=== PATIENT | female | born 1950 | race African-American/Black ===

== ENCOUNTER → 2016-12-12 | Outpatient (CLI) | payer MEDICARE, OTHER ==
[~2016-12-12] MED LIST: LORA-627 PO; [UNRECOGNIZED DRUG - OTHER]; lisinopril; potassium; warfarin
--- NOTE | 2016-12-12 11:49 | RAD ---
DATE: 12/12/2016 EXAM: DIGITAL SCREEN BILAT W/CAD HISTORY: Routine screening COMPARISON: 11/28/2015 This study was interpreted with the benefit of Computerized Aided Detection (CAD). FINDINGS: There are scattered fibroglandular densities in the breasts. No new or enlarging breast densities are seen. 2 breast biopsy markers are again noted in the left breast. Benign type calcifications are present. No suspicious microcalcifications have developed. IMPRESSION: Stable mammograms without evidence of malignancy. BI-RADS CATEGORY: 2 BENIGN FINDING(S) RECOMMENDED FOLLOW-UP: 12M 12 MONTH FOLLOW-UP PQRS compliance statement: Patient information was entered into a reminder system with a target due date for the next mammogram. Mammography is a sensitive method for finding small breast cancers, but it does not detect them all and is not a substitute for careful clinical examination. A negative mammogram does not negate a clinically suspicious finding and should not result in delay in biopsying a clinically suspicious abnormality. "Our facility is accredited by the [employer] Mammography [employer]."
== END | disposition home or self-care (01) ==
LOC: MAMMO 11:00
PROVIDERS: ATTEND Family Medicine
DX: Z12.31 Encounter for screening mammogram for malignant neoplasm of breast (principal)
CPT/HCPCS: G0202; 77067

== ENCOUNTER → 2017-12-15 | Outpatient (CLI) | payer MEDICARE, OTHER | END | disposition home or self-care (01) | LOC: MAMMO 11:01 | DX: Z12.31 Encounter for screening mammogram for malignant neoplasm of breast (principal) | CPT/HCPCS: 77063; 77067 ==

== ENCOUNTER → 2018-12-16 | Outpatient (CLI) | payer MEDICARE, OTHER ==
--- NOTE | 2018-12-16 13:16 | RAD ---
DATE: 12/16/2018 EXAM: DIGITAL SCREEN BILAT W/CAD HISTORY: Routine screening COMPARISON: 12/15/2017 This study was interpreted with the benefit of Computerized Aided Detection (CAD). Breast Density: SCATTERED The breast parenchyma shows scattered fibroglandular densities. Breast parenchyma level B. FINDINGS: Two old breast biopsy markers are again noted in the left breast. No new or enlarging breast densities are seen. Scattered benign type calcifications are noted. No suspicious microcalcifications have developed. IMPRESSION: Stable mammograms without evidence of malignancy. BI-RADS CATEGORY: 2 BENIGN FINDING(S) RECOMMENDED FOLLOW-UP: 12M 12 MONTH FOLLOW-UP PQRS compliance statement: Patient information was entered into a reminder system with a target due date for the next mammogram. Mammography is a sensitive method for finding small breast cancers, but it does not detect them all and is not a substitute for careful clinical examination. A negative mammogram does not negate a clinically suspicious finding and should not result in delay in biopsying a clinically suspicious abnormality. "Our facility is accredited by the [employer] Mammography [employer]."
== END | disposition home or self-care (01) ==
LOC: MAMMO 12:18
PROVIDERS: ATTEND Family Medicine
DX: Z12.31 Encounter for screening mammogram for malignant neoplasm of breast (principal); R92.8 Other abnormal and inconclusive findings on diagnostic imaging of breast
CPT/HCPCS: 77067

== ENCOUNTER → 2020-05-02 | Outpatient (CLI) | payer MEDICARE, BC ==
--- NOTE | 2020-05-02 17:10 | KCIC ---
CERVICAL SPINE 5V History: Cervical pain greater on the left side for about one month Comparison: None. Findings: 6 views of the cervical spine are submitted. There is mild degenerative disc disease at C6-7. There are large anterior osteophytes C3-4 to C6-7. There is multilevel cervical facet degenerative change. There is neural foramina compromise likely greatest on the left at C6-7 and on the right at C5-6 and C6-7. There is adequate alignment of lateral masses of C1 relative to C2. Impression: 1. There is multilevel facet degenerative change which contributes to multilevel neural foramina compromise. There is mild C6-7 degenerative disc disease. There are large anterolateral osteophytes greatest at C5-6 and C6-7. Electronically signed by: Tarun Rocha MD (05/02/2020 5:07 PM) [id number]
== END | disposition home or self-care (01) ==
LOC: KCIC 11:12
PROVIDERS: ATTEND Family Medicine
DX: M47.812 Spondylosis without myelopathy or radiculopathy, cervical region (principal); M50.323 Other cervical disc degeneration at C6-C7 level; M25.78 Osteophyte, vertebrae
CPT/HCPCS: 72050

== ENCOUNTER → 2020-06-29 | Outpatient (CLI) | payer MEDICARE, BC ==
[~2020-06-29] MED LIST changes: +CONTRAST GIVEN. MC PRN; +IOHEXOL 300 MG/ML 100ML VIAL. IV ONE
--- NOTE | 2020-06-29 15:48 | KCIC ---
RS Compliance Statement: One or more of the following individualized dose reduction techniques were utilized for this examination: 1. Automated exposure control 2. Adjustment of the mA and/or kV according to patient size 3. Use of iterative reconstruction technique Neck CT with contrast: 06/29/2020 Indication: Anterior left-sided neck pain. Technique: Multiple axial images were obtained through the neck following intravenous injection of contrast material. Comparison: None. Findings: The visualized brain parenchyma appears intact. The skull base is normal. The visualized paranasal sinuses and orbital contents are normal. The sella turcica and cavernous sinus regions appear intact. The mastoid air cells are normal. The fossa of Rosenmuller is normal. The parotid space contents and poultry cutter space contents appear intact. The parapharyngeal spaces are normal. Minimal dilatation of the intraglandular submandibular ducts. No calculi are identified. The epiglottis, aryepiglottic folds, and piriform sinuses are normal. The vallecula appears normal. The larynx and trachea are normal. The thyroid lobes appear intact. The carotid space contents are normal. There is no deep cervical chain adenopathy observed. The jugulodigastric regions appear intact. Submental lymph node measures 6 mm. The perivertebral space contents are normal. The supraclavicular regions appear intact. The visualized mediastinum is normal. The visualized lungs appear intact. Mild cervical spondylosis centered at C6-C7.. 5 mm solid noncalcified pulmonary nodule identified in the left upper lobe (series 2, image 75). Impression: 1. Minimal symmetric dilatation of the intraglandular submandibular ducts bilaterally. No definite calcifications within the floor of mouth to suggest sialolithiasis. 2. 5 mm solid noncalcified pulmonary nodule in the left upper lobe. Fleischner guidelines for incidentally detected pulmonary nodules suggests no routine follow-up for low risk patients and optional CT at 12 months for high risk patients with solid noncalcified pulmonary nodules less than 6 mm in size. 3. No suspicious pharyngeal or laryngeal mass. No pathologically enlarged cervical lymph nodes. Electronically signed by: Tisha Guardado MD (06/29/2020 3:46 PM) [facility]
== END ==
LOC: KCIC CT 12:35
PROVIDERS: ATTEND Family Medicine
DX: R59.0 Localized enlarged lymph nodes (principal); M47.812 Spondylosis without myelopathy or radiculopathy, cervical region; R91.1 Solitary pulmonary nodule
CPT/HCPCS: 70491; 82565; Q9967

== ENCOUNTER → 2020-11-21 | Outpatient (CLI) | payer MEDICARE, BC ==
[~2020-11-21] MED LIST changes: -CONTRAST GIVEN. MC PRN; -IOHEXOL 300 MG/ML 100ML VIAL. IV ONE
--- NOTE | 2020-11-23 08:59 | RAD ---
DATE: 11/21/2020 2:55 PM EXAM: MAMMO STEVIE SCREENING BILATERAL HISTORY: Screening COMPARISON: 12/16/2018 Bilateral CC and MLO views of the breasts were performed. Bilateral breast tomosynthesis was performed in CC and MLO projections. This study was interpreted with the benefit of Computerized Aided Detection (CAD). FINDINGS: Breast Density: SCATTERED The breast parenchyma shows scattered fibroglandular densities. Breast parenchyma level B No suspicious masses, microcalcifications or architectural distortion is present to suggest malignancy in either breast. The visualized axillae are unremarkable. IMPRESSION: No mammographic evidence of malignancy. BI-RADS CATEGORY: 1 NEGATIVE RECOMMENDED FOLLOW-UP: 12M 12 MONTH FOLLOW-UP Annual screening mammography is recommended, unless clinically indicated sooner based on symptoms or change in physical exam. PQRS compliance statement: Patient information was entered into a reminder system with a target due date for the next mammogram. Mammography is a sensitive method for finding small breast cancers, but it does not detect them all and is not a substitute for careful clinical examination. A negative mammogram does not negate a clinically suspicious finding and should not result in delay in biopsying a clinically suspicious abnormality. "Our facility is accredited by the [employer] Mammography [employer]."
== END ==
LOC: MAMMO 16:01
PROVIDERS: ATTEND Family Medicine
DX: Z12.31 Encounter for screening mammogram for malignant neoplasm of breast (principal)
CPT/HCPCS: 77063; 77067

== ENCOUNTER → 2022-01-01 | Outpatient (CLI) | payer MEDICARE, BC ==
--- NOTE | 2022-01-01 12:23 | RAD ---
INDICATION: 71 years of age asymptomatic female patient presents for screening mammography. No person al or family history of breast cancer. History of benign left breast biopsy. TECHNIQUE: Full field craniocaudal and mediolateral oblique images of both breasts were obtained usi ng digital technique with tomosynthesis and also analyzed with computer-aided detection software. COMPARISON: Prior mammographic imaging dating back to 11/28/2015. BREAST COMPOSITION: Category A: The breasts are predominantly fatty. FINDINGS: No suspicious masses, microcalcifications or architectural distortion is present to suggest malignanc y in either breast. Benign scattered calcifications. Similar postbiopsy changes in the medial right b reast, middle depth. The visualized axillae are unremarkable. IMPRESSION: No mammographic evidence of malignancy. RECOMMENDATION: Annual screening mammography is recommended, unless clinically indicated sooner based on symptoms or change in physical exam. BIRADS 2: BENIGN This study was interpreted with the benefit of Computerized Aided Detection (CAD). Patient information is entered into the reminder system with a target due date for the next screening mammogram. Mammography is the most sensitive method for finding small breast cancers, but it does not detect the m all and is not a substitute for careful clinical examination. A negative mammogram does not negate a clinically suspicious finding and should not result in delay in biopsying a clinically suspicious a bnormality. "Our facility is accredited by the [employer] Mammography [employer]." Electronically signed by: Andrea Guaman DO (01/01/2022 12:21 PM) [id number]
== END ==
LOC: MAMMO 11:16
PROVIDERS: ATTEND Family Medicine
DX: Z12.31 Encounter for screening mammogram for malignant neoplasm of breast (principal)
CPT/HCPCS: 77063; 77067